=== PATIENT | female | born 1995 | race Caucasian/White ===

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

== ENCOUNTER 2017-09-13 21:10 | Emergency (ER) | payer OTHER ==
[~2017-09-13] VITALS: Ht 152.4 cm; Wt 109.0 kg
[~2017-09-13 21:10] MED LIST changes: +AMLO-512 PO; +CARB15OT AU; -LISI-660 PO; -VITAD1000 PO; +ZIPR20CA2 PO
[2017-09-13 21:37] LABS: GLUCOSE,POINT OF CARE 93 MG/DL (70-110)
[2017-09-13 22:28] VITALS: BP 141/80
[2017-09-13] MEDS ORDERED: IBUPROFEN 800 MG TABLET PO ONE (22:45)
== END 2017-09-13 23:10 | disposition home or self-care (01) ==
LOC: EMS 21:11
DX: S93.402A Sprain of unspecified ligament of left ankle, initial encounter (principal); F32.9 Major depressive disorder, single episode, unspecified; I10 Essential (primary) hypertension; E28.2 Polycystic ovarian syndrome; Z79.84 Long term (current) use of oral hypoglycemic drugs; X50.1XXA Overexertion from prolonged static or awkward postures, initial encounter; Y93.89 Activity, other specified; Y92.830 Public park as the place of occurrence of the external cause; Y99.8 Other external cause status
CPT/HCPCS: 99284

== ENCOUNTER 2018-04-26 15:59 | Emergency (ER) | payer OTHER ==
[~2018-04-26] VITALS: Ht 154.9 cm; Wt 113.6 kg
[~2018-04-26 15:59] MED LIST changes: -AMLO-512 PO; -CARB15OT AU; +METF-445 PO; -METF850T2 PO
[2018-04-26] MEDS ORDERED: LAMO25 PO (16:14)
[2018-04-26] MEDS ORDERED: AMLO2.5T3 PO (16:14)
[2018-04-26] MEDS ORDERED: SPIR25 PO (16:14)
[2018-04-26] MEDS ORDERED: IPRATROPIUM BROMIDE 0.5 MG/2.5 ML NEB SOLUTION NEB ONE ×2 (16:15→20:15)
[2018-04-26] MEDS ORDERED: ALBUTEROL SULFATE 2.5 MG/0.5 ML NEB SOLUTION NEB ONE (16:15)
[2018-04-26 16:19] LABS: GLUCOSE,POINT OF CARE 157 MG/DL (70-110)
[2018-04-26] MEDS ORDERED: ALBUTEROL SULFATE 5 MG/ML 20 ML NEB SOLN [BULK] NEB ONE (20:15)
[2018-04-26] MEDS ORDERED: PredniSONE 20 MG TABLET PO ONE (20:15)
[2018-04-26] MEDS ORDERED: 0.9% SODIUM CHLORIDE 5 ML NEB SOLUTION NEB ONE (20:16)
[2018-04-26] MEDS ORDERED: MAALOX/LIDOCAINE/NYSTATIN SUSP 5 ML ORAL.SYG MM ONE (21:45)
[2018-04-26] MEDS ORDERED: ALBUTEROL SULFATE HFA 90 MCG/PUFF 8 GM INHALER IH ONE (21:45)
[2018-04-26 22:01] VITALS: BP 150/88
== END 2018-04-26 22:01 | disposition home or self-care (01) ==
LOC: EMS 16:00
DX: J20.9 Acute bronchitis, unspecified (principal); J45.909 Unspecified asthma, uncomplicated; I10 Essential (primary) hypertension; F32.9 Major depressive disorder, single episode, unspecified
CPT/HCPCS: 82962; 94640; 94644; 99285; J7512; J3535

== ENCOUNTER 2020-12-18 00:21 | Emergency (ER) | payer OTHER ==
[~2020-12-18] VITALS: Ht 152.4 cm; Wt 108.6 kg
[~2020-12-18 00:21] MED LIST changes: +AMLO2.5T96 PO; +LAMO25TA25 PO; +SPIR-37 PO
[2020-12-18 01:10] VITALS: BP 127/71
[2020-12-18] MEDS ORDERED: AMOXICILLIN TRIHYDRATE 250 MG CAPSULE PO ONE (02:30)
[2020-12-18] MEDS ORDERED: IBUPROFEN 800 MG TABLET PO ONE (02:30)
== END 2020-12-18 02:58 | disposition home or self-care (01) ==
LOC: EMS 00:23
DX: J03.90 Acute tonsillitis, unspecified (principal); J45.909 Unspecified asthma, uncomplicated; F32.9 Major depressive disorder, single episode, unspecified; I10 Essential (primary) hypertension; Z79.84 Long term (current) use of oral hypoglycemic drugs
CPT/HCPCS: 82962; 99283

== ENCOUNTER 2021-07-14 07:06 | Emergency (ER) | payer OTHER ==
[~2021-07-14] VITALS: Ht 165.1 cm; Wt 81.8 kg
[2021-07-14 07:14] VITALS: BP 0/0
[2021-07-14] MEDS ORDERED: BECL10.6 IH (07:19)
[2021-07-14] MEDS ORDERED: ALBU8HFA IH (07:19)
== END 2021-07-14 08:08 | disposition left against medical advice (07) ==
LOC: EMS 07:06
DX: J45.909 Unspecified asthma, uncomplicated (principal); Z53.21 Procedure and treatment not carried out due to patient leaving prior to being seen by health care provider

== ENCOUNTER 2021-08-23 13:40 | Emergency (ER) | payer OTHER ==
[~2021-08-23] VITALS: Ht 154.9 cm; Wt 118.2 kg
[~2021-08-23 13:40] MED LIST changes: +ALBU8HFA IH; +BECL10.6 IH
[2021-08-23 14:02] VITALS: BP 100/49
[2021-08-23 14:43] LABS: COVID AG,FIA SOURCE NASAL SWAB
[2021-08-23] MEDS ORDERED: PRAZ2CAP2 PO (14:49)
[2021-08-23] MEDS ORDERED: HYDR-4527 PO (14:49)
[2021-08-23] MEDS ORDERED: CHOL200059 PO (14:49)
[2021-08-23] MEDS ORDERED: LAMO100 PO (14:49)
[2021-08-23] MEDS ORDERED: CHLO25TA3 PO (14:49)
[2021-08-23] MEDS ORDERED: PB/HYOSCY/ATR/SCOP/LIDO/MAALOX 55 ML BOTTLE PO ONE (15:45)
[2021-08-23] MEDS ORDERED: HYDR100C2 PO (15:50)
[2021-08-23] MEDS ORDERED: LAMO25TA25 PO (15:50)
[2021-08-23] MEDS ORDERED: BREX2TAB PO (15:53)
[2021-08-23] MEDS ORDERED: AMLO-258 PO (15:53)
[2021-08-23] MEDS ORDERED: NORE-227 PO (15:53)
== END 2021-08-23 16:25 | disposition home or self-care (01) ==
LOC: EMS 13:40
DX: J03.90 Acute tonsillitis, unspecified (principal); F41.9 Anxiety disorder, unspecified; J45.909 Unspecified asthma, uncomplicated; F31.9 Bipolar disorder, unspecified; I10 Essential (primary) hypertension; G47.30 Sleep apnea, unspecified; E28.2 Polycystic ovarian syndrome; Z98.890 Other specified postprocedural states; Z20.822 Contact with and (suspected) exposure to COVID-19
CPT/HCPCS: 87430; 99283